=== PATIENT | female | born 1990 | race African-American/Black ===

== ENCOUNTER 2023-05-23 03:17 | Emergency (ER) | payer SELFPAY ==
[~2023-05-23] VITALS: Ht 160 cm; Wt 72.7 kg
[2023-05-23 03:37] VITALS: BP 108/89; PULSE 75; RESP 18; TEMP 98.5
[2023-05-23] MEDS ORDERED: DIPH25CA66 PO (05:23)
[2023-05-23] MEDS ORDERED: diphenhdrAMINE HCL 25 MG CAP PO ONE (05:30)
[2023-05-23 05:32] VITALS: O2SAT 99
== END 2023-05-23 06:32 | disposition home or self-care (01) ==
LOC: ER 03:17
DX: T78.40XA Allergy, unspecified, initial encounter (principal); X58.XXXA Exposure to other specified factors, initial encounter